=== PATIENT | female | born 1995 | race African-American/Black ===

== ENCOUNTER 2018-05-17 06:32 | Emergency (ER) | payer MEDICAID ==
[~2018-05-17] VITALS: Ht 157.5 cm; Wt 52.9 kg
[2018-05-17 09:45] LABS: CLARITY URINE CLEAR (CLEAR); COLOR URINE YELLOW (YELLOW); KETONES URINE 1+ (NEGATIVE); LEUKOCYTE ESTERASE URINE NEGATIVE (NEGATIVE); NITRITE URINE NEGATIVE (NEGATIVE); OCCULT BLOOD URINE NEGATIVE (NEGATIVE); PROTEIN URINE 1+ (NEGATIVE); SPECIFIC GRAVITY URINE 1.019 (1.005-1.030); UROBILINOGEN URINE 0.2 E.U./dL (0.2-1.0)
[2018-05-17 09:57] LABS: *AMPHETAMINES SCREEN URINE NEGATIVE (NEGATIVE); *BARBITURATES SCREEN URINE NEGATIVE (NEGATIVE); *BENZODIAZEPINES SCREEN URINE NEGATIVE (NEGATIVE); *COCAINE SCREEN URINE NEGATIVE (NEGATIVE); METHADONE URINE SCREEN NEGATIVE (NEGATIVE)
[2018-05-17 09:58] LABS: OPIATES URINE SCREEN NEGATIVE (NEGATIVE); PHENCYCLIDINE URINE SCREEN NEGATIVE (NEGATIVE)
[2018-05-17 10:13] LABS: CANNABINOID URINE SCREEN PRESUMTIVE POSITIVE (NEGATIVE)
[2018-05-17 10:26] LABS: BASOPHILS % 0.6 % (0.0-2.0); HEMATOCRIT. 47.1 % (36.0-48.0); HEMOGLOBIN. 15.8 g/dL (12.0-16.0); LYMPHOCYTES % 13.7 % (20.0-50.0); MEAN CORPUSCULAR HEMOGLOBIN 30.4 pg (28.0-32.0); MEAN CORPUSCULAR VOLUME 90.6 fL (81.0-99.0); MONOCYTES % 5.2 % (2.0-8.0); NEUTROPHILS % 80.5 % (40.0-76.0); RED CELL DISTRIBUTION WIDTH 13.6 % (11.6-14.6)
[2018-05-17 10:31] LABS: CHLORIDE 109 mEq/L (98-107)
[2018-05-17 10:40] LABS: ETHANOL BLOOD < 10 mg/dL
[2018-05-17 11:34] LABS: PLATELET 208 x1000/uL (130-400)
[2018-05-18 08:57] VITALS: BP 131/93
== END 2018-05-18 09:05 | disposition home or self-care (01) ==
LOC: ER 06:32
DX: F32.9 Major depressive disorder, single episode, unspecified (principal); R45.851 Suicidal ideations; F17.200 Nicotine dependence, unspecified, uncomplicated; F12.10 Cannabis abuse, uncomplicated
CPT/HCPCS: 36415; 80053; 80305; 80307; 80329; 81003; 81025; 85025; 99284; G0482